=== PATIENT | male | born 1950 | race Caucasian/White ===

== ENCOUNTER 2021-08-04 11:11 | Inpatient (IN) | payer BC ==
[~2021-08-04] VITALS: Ht 180.3 cm; Wt 80.0 kg
[~2021-08-04 11:11] MED LIST: etomidate 2mg/ml inj. ONE; rocuronium 10mg/ml inj IV ONE; sodium bicarbonate (8.4%) 1 mEq/ml syringe ONE
[2021-08-04] MEDS ORDERED: heparin 1,000unit/ml 10ml vial 10 ML ONE ×3 (11:16→16:54)
[2021-08-04] MEDS ORDERED: midazolam 1 mg/ML 2ml injection ONE ×2 (11:16→15:34)
[2021-08-04] MEDS ORDERED: iohexol 350 MG/1 ML 200ml bottle ONE (11:16)
[2021-08-04] MEDS ORDERED: LIDOcaine 1% (10mg/ml)w/preservative injection 20ml MDV ONE ×2 (11:16→15:34)
[2021-08-04] MEDS ORDERED: fentaNYL/PF 50MCG/1 ML 2ML syringe ONE ×2 (11:16→15:34)
[2021-08-04] MEDS ORDERED: normal saline 1000ML IV soln IVB ONE ×2 (11:25→13:10)
[2021-08-04] MEDS ORDERED: heparin 10,000 units/1 ML INJ IV ONE ×3 (11:30→15:40)
[2021-08-04] MEDS ORDERED: heparin 25,000 UNIT/250ml bag 250 ML IV SCH ×2 (11:30→15:40)
[2021-08-04 11:33] LABS: BASOPHILS % (AUTO) 0.3 % (0-1); EOSINOPHILS % (AUTO) 0.3 % (0-6); HEMATOCRIT 37.1 % (42.0-52.0); HEMOGLOBIN 12.3 g/dl (14.0-17.9); LYMPHOCYTES # (AUTO) 2.5 X10'3 (1.1-4.8); LYMPHOCYTES % (AUTO) 20.1 % (21-51); MEAN CORPUSCULAR HEMOGLOBIN 31.6 PG (27.0-31.0); MEAN CORPUSCULAR HGB CONC 33.3 g/dL (33.0-36.5); MEAN CORPUSCULAR VOLUME 94.9 FL (78-98); MEAN PLATELET VOLUME 9.5 FL (7.4-10.4); MONOCYTES # (AUTO) 0.9 X10'3 (0-0.9); MONOCYTES % (AUTO) 6.8 % (2-12); NEUTROPHILS # (AUTO) 9.2 X10'3 (1.8-7.7); NEUTROPHILS % (AUTO) 72.5 % (42-75); PLATELET COUNT 239 X10'3 (140-440); RED CELL DISTRIBUTION WIDTH 14.9 % (11.5-14.5); WHITE BLOOD COUNT 12.6 X10'3 (4.5-11.0)
[2021-08-04] MEDS ORDERED: heparin 10,000 units/1 ML INJ IV PRN ×2 (11:35→15:40)
[2021-08-04 11:50] LABS: ALANINE AMINOTRANSFERASE 84 U/L (12-78); ALBUMIN/GLOBULIN RATIO 0.8 (1.1-1.5); ALKALINE PHOSPHATASE 82 IU/L (46-116); ANION GAP 18 (8-16); ASPARTATE AMINO TRANSFERASE 46 U/L (10-37); BILIRUBIN,TOTAL 0.5 MG/DL (0.1-1.0); BLOOD UREA NITROGEN 62 MG/DL (7-18); BUN/CREATININE RATIO 23.1 (5.4-32.0); CALCIUM 8.4 MG/DL (8.5-10.1); CHLORIDE 101 MMOL/L (99-107); CREATININE 2.68 MG/DL (0.60-1.10); GLUCOSE 395 MG/DL (70-104); POTASSIUM 4.3 MMOL/L (3.5-5.1); SODIUM 137 MMOL/L (135-145); TOTAL CARBON DIOXIDE 17.9 MMOL/L (24-32); eGFR 24 ML/MIN
[2021-08-04 12:05] LABS: APTT 25 SECONDS (22-32); D-DIMER 0.56 MG/L FEU (0-0.50)
[2021-08-04 12:11] LABS: MAGNESIUM 2.4 MG/DL (1.5-2.4)
[2021-08-04] MEDS ORDERED: normal saline 1000ml 1,000 ML IV SCH ×2 (13:00→15:40)
[2021-08-04] MEDS ORDERED: midazolam 100mg in NS 100ml 100 ML IV PRN (13:00)
[2021-08-04 13:27] LABS: ABG BASE EXCESS -17.6 mmol/L (-2.0-2.0); ABG HCO3 10.5 mmol/L (22.0-26.0); ABG OXYGEN SATURATION 91.2 % (94-97); ABG PCO2 (T) 29.4 mmHg (35.0-48.0); ABG PO2 (T) 65.9 mmHg (75.0-100.0); ALLEN'S TEST POSITIVE; FCOHb 0.4 % (0.0-3.9); FO2Hb 90.8 % (94-97); PATIENT TEMPERATURE 34.4; PEEP 5 cm H2O; RESPIRATORY RATE 18 b/min; TIDAL VOLUME 450 mL; TOTAL HEMOGLOBIN 13.3 G/dl (14.0-18.0)
--- NOTE | 2021-08-04 13:29 | NUR ---
PT INTUBATED ETOMIDATE 20MG AT [address] STARTED INTUABATION PT STRUGULING ANTOHTER 10 GAEL PUSHED AT 1305 1308 ETT 8 PLACED AT 24 AT THE LIP AND PLACED ON VENT TV 450 RATE 18 FIO2 100 PEEP 5 STATING 94%
[2021-08-04] MEDS ORDERED: UNABLE TO OBTAIN (13:54)
--- NOTE | 2021-08-04 14:34 | NUR ---
PT INTUBATED SBP 70'S -UPPER 80'S MD NOTIFIED CONT TO MONITER FLUID GIVEN
[2021-08-04] MEDS ORDERED: DOBUTamine-DoBUTrex 500mg/D5W 250 ML IV SCH ×2 (15:00→15:03)
[2021-08-04] MEDS ORDERED: NORepinephrine inj. 8 MG in dextrose 5%-water 242 ML IV SCH (15:05)
[2021-08-04] MEDS ORDERED: NORepinephrine 8mg/ 250ml NS 250 ML IV SCH (15:05)
[2021-08-04] MEDS ORDERED: nitroGLYCERIN-Tridil 50MG/D5W 250 ML IV ONE (15:34)
[2021-08-04] MEDS ORDERED: verapamil 2.5 mg/ml inj IV ONE (15:34)
[2021-08-04] MEDS ORDERED: heparin 1,000 UNITS/NS 500ml 500 ML ONE (15:34)
[2021-08-04 15:35] VITALS: BP 92/40
[2021-08-04] MEDS ORDERED: ondansetron/PF 4mg/2ml inj IV PRN (15:40)
[2021-08-04] MEDS ORDERED: magnesium 4gm in 100ml NS 100 ML IV PRN (15:40)
[2021-08-04] MEDS ORDERED: DOBUTamine-DoBUTrex 500mg/D5W 250 ML IV PRN (15:40)
[2021-08-04] MEDS ORDERED: potassium Cl 20mEq/100mL bag 100 ML IV PRN (15:40)
[2021-08-04] MEDS ORDERED: acetaminophen 650mg rectal suppository RC PRN (15:40)
[2021-08-04] MEDS ORDERED: NOREPINEPHRINE BITARTRATE/D5W 250 ML IV PRN (15:40)
[2021-08-04] MEDS ORDERED: magnesium 2GM in 50ml NS 50 ML IV PRN (15:40)
[2021-08-04] MEDS ORDERED: bisacodyl 10mg suppository rectal RC SCH (15:40)
[2021-08-04] MEDS ORDERED: sodium bicarbonate (8.4%) inj. 150 MEQ in dextrose 5%-water 1,000 ML IV SCH (16:10)
[2021-08-04] MEDS ORDERED: NORepinephrine 1 mg/ml inj IV ONE (16:52)
[2021-08-04] MEDS ORDERED: tirofiban 5mg in NS 100mL 100 ML IV ONE (16:54)
[2021-08-04] MEDS ORDERED: atropine 0.1mg/ml 10ml syringe ONE (16:58)
[2021-08-04] MEDS ORDERED: epiNEPHrine 1 mg/ml inj ONE ×2 (16:58→17:03)
[2021-08-04] MEDS ORDERED: docusate sod 100mg capsule PO SCH (20:00)
[2021-08-05] MEDS ORDERED: K and/or MAG REPLACEMENT MC SCH (08:00)
== END 2021-08-04 21:43 | DRG 250 ==
LOC: ER 11:12 → ED HOLD 15:44 → ICU 2S 18:59
PROVIDERS: ADMIT Surgery; ATTEND Surgery
PROC: 5A12012 Performance of Cardiac Output, Single, Manual (ICD-10-PCS; principal; 2021-08-04)
PROC: 5A1935Z Respiratory Ventilation, Less than 24 Consecutive Hours (ICD-10-PCS; 2021-08-04)
PROC: 0BH17EZ Insertion of Endotracheal Airway into Trachea, Via Natural or Artificial Opening (ICD-10-PCS; 2021-08-04)
PROC: 4A023N7 Measurement of Cardiac Sampling and Pressure, Left Heart, Percutaneous Approach (ICD-10-PCS; 2021-08-04)
PROC: 02703ZZ Dilation of Coronary Artery, One Artery, Percutaneous Approach (ICD-10-PCS; 2021-08-04)
PROC: B2111ZZ Fluoroscopy of Multiple Coronary Arteries using Low Osmolar Contrast (ICD-10-PCS; 2021-08-04)
PROC: B2151ZZ Fluoroscopy of Left Heart using Low Osmolar Contrast (ICD-10-PCS; 2021-08-04)
PROC: 02HV33Z Insertion of Infusion Device into Superior Vena Cava, Percutaneous Approach (ICD-10-PCS; 2021-08-04)
DX: I21.3 ST elevation (STEMI) myocardial infarction of unspecified site (principal); J96.00 Acute respiratory failure, unspecified whether with hypoxia or hypercapnia; E87.2 Acidosis; N17.9 Acute kidney failure, unspecified; Z20.822 Contact with and (suspected) exposure to COVID-19; R00.0 Tachycardia, unspecified; E11.9 Type 2 diabetes mellitus without complications; I10 Essential (primary) hypertension; R57.0 Cardiogenic shock; Z87.891 Personal history of nicotine dependence; Z88.5 Allergy status to narcotic agent
CPT/HCPCS: 36415; 36600; 71045; 80053; 82803; 83735; 83880; 84145; 84484; 85018; 85025; 85379; 85610; 85730; 86140; 87070; 87635; 92920; 92950; 93005; 93306; 93458; 94002; 94760; 94799; 96361; 96365; 96367; 96375; 99152; 99153; 99285; A5120; A6258; C1725; C1751; C1769; C1894; C9803; G0378; J0171; J0461; J1250; J1644; J2250; J3010; J3246; J3490; J7030; Q9967